=== PATIENT | female | born 1990 | race Caucasian/White ===

== ENCOUNTER → 2020-05-31 | Outpatient (CLI) | payer MEDICAID ==
[~2020-05-31] MED LIST: DSS100 PO; IBUP-2070 PO; RINGERS SOLUTION,LACTATED 1,000 ML IV SCH; prenatal PO
== END | disposition home or self-care (01) ==
LOC: RADPV 11:12
PROVIDERS: ATTEND Obstetrics & Gynecology Obstetrics
DX: O36.4XX0 Maternal care for intrauterine death, not applicable or unspecified (principal); Z3A.15 15 weeks gestation of pregnancy
CPT/HCPCS: 76805